=== PATIENT | male | born 1955 | race Caucasian/White ===

== ENCOUNTER 2021-02-06 12:35 | Emergency (ER) | payer OTHER, SELFPAY ==
[2021-02-06] VITALS (11 sets, daily range): BP systolic 134–174; BP diastolic 94–104; PULSE 82–93; RESP 10–23; TEMP 36.7; O2SAT 97–99
--- NOTE | 2021-02-06 12:49 | DI.CT.S_ITS ---
PROCEDURE: CT ANGIO HEAD AND NECK INDICATIONS: left facial droop TECHNIQUE: Noncontrast images were performed earlier in the day and not repeated. After the administration of intravenous contrast, 1 mm thick sections acquired from the aortic arch through the [place] of [place]. Post-contrast 4.5 mm thick sections then re-acquired from the foramen magnum to the vertex. 3-dimensional bmauhhs-nackboxvs-ckkfkmiufe (MIP) and/or volume rendering reformats were acquired of the central intracranial vasculature and neck separately. COMPARISON: [facility], CT, CT STROKE, 02/06/2021, 12:49. FINDINGS: Image quality: Excellent. BRAIN: CSF spaces: Ventricles are normal in size and shape. Basal cisterns are patent. No extra-axial fluid collections. Brain: No midline shift. No intracranial bleeds or masses. Mar-white matter interface appears intact. Skull and face: Calvarium and facial bones appear intact, without suspicious lesions. Orbits appear normal. Sinuses: Sinuses and mastoids are clear. HEAD CT ANGIOGRAPHY: Anterior circulation: Intracranial internal carotid arteries are normal in size and flow. The flow within the paired anterior cerebral arteries is normal and symmetric. The flow within the middle cerebral arteries is normal and symmetric. The anterior communicating artery is seen. No aneurysms are seen. Posterior circulation: Visualized portions of the vertebral arteries demonstrate normal caliber, and join to form a normal appearing basilar artery. Flow within the posterior cerebral arteries is normal and symmetric. No aneurysms are seen. NECK CT ANGIOGRAPHY: Carotid system: The great vessels demonstrate a conventional anatomy as they arise from the aortic arch. The origins of the common carotid arteries appear patent. The common carotid arteries demonstrate normal caliber and courses. The bifurcation regions are both widely patent. The internal carotid arteries demonstrate normal calibers and courses. Posterior circulation: The origins of the vertebral arteries both appear widely patent. The more superior extracranial portions of both vertebral arteries also demonstrate normal courses and calibers. They join to form a normal appearing basilar artery. Soft tissues: Visualized neck soft tissues demonstrate no suspicious abnormalities. Bones: No suspicious bony lesions. Visualized cervical spine appears normally aligned. Degenerative changes are seen, which are worst at the C5-C6 level. IMPRESSION: No acute intracranial process is seen. No abnormal enhancement is seen. Within the arteries of the neck, no hemodynamically significant stenosis can be seen. If there is strong clinical suspicion for an acute stroke, please consider a brain MRI for further evaluation, as it is more sensitive (assuming that there is no contraindication to MRI). Incidental note is made of: Focal C5-C6 degenerative change Any quantitative measurements of stenosis were performed using NASCET criteria. Dictated by: Jose Antonio Rodriguez M.D. on 02/06/2021 at 12:27 Approved by: Jose Antonio Rodriguez M.D. on 02/06/2021 at 12:30
--- NOTE | 2021-02-06 12:53 | DI.CT.S_ITS ---
PROCEDURE: CT STROKE INDICATIONS: LEFT FACIAL DROP TECHNIQUE: Noncontrast 4.5 mm thick angled axial sections acquired from the foramen magnum to the vertex, with coronal reformats. For radiation dose reduction, the following was used: automated exposure control, adjustment of mA and/or kV according to patient size. COMPARISON: None. FINDINGS: Image quality: Excellent. CSF spaces: Basal cisterns are patent. No extra-axial fluid collections. The ventricles are symmetric in size and shape. Brain: No intracranial bleeds or masses. There is cerebral volume loss for age, with resultant ventricular and sulcal prominence. There are periventricular and deep white matter chronic small vessel ischemic changes. There is intracranial internal carotid artery atherosclerosis. Skull and face: Calvarium and visualized facial bones appear intact, without suspicious lesions. Sinuses: Visualized sinuses and mastoids are clear. IMPRESSION: 1. CT head without acute intracranial abnormalities or acute calvarial fractures. 2. Age-related senescent changes and sequela of chronic small vessel ischemic disease. Findings were discussed telephonic with Dr. Oliva at 1316 hrs. This study fulfills neurological imaging criteria for inclusion or exclusion of acute stroke therapies based on available published neurological guidelines. Dictated by: Arpit Pope M.D. on 02/06/2021 at 13:14 Approved by: Arpit Pope M.D. on 02/06/2021 at 13:17
[2021-02-06 13:01] LABS: Add Manual Diff / Slide Review NO; Basophils Absolute Auto 100 /uL (0-100); Basophils Percent Auto 0.8 % (0-2); Eosinophils Absolute Auto 200 /uL (0-450); Eosinophils Percent Auto 1.8 % (2-4); Hematocrit 42.5 % (41-53); Lymphocytes Absolute Auto 1600 /uL (1100-4500); Lymphocytes Percent Auto 15.5 % (25-40); Mean Corpuscular HGB Conc 32.9 % (30-36); Mean Corpuscular Hemoglobin 29.6 PG (26-34); Mean Corpuscular Volume 90.1 fL (80-100); Monocytes Absolute Auto 1100 /uL (0-900); Monocytes Percent Auto 10.7 % (3-14); Neutrophils Absolute Auto 7200 /uL (1500-7000); Neutrophils Percent Auto 71.2 % (50-75); Platelet Count 304 X10^3/uL (150-400); Red Blood Cell Count 4.71 X10^6/uL (4.5-5.9); White Blood Cell Count 10.1 X10^3/uL (4.5-11.0)
[2021-02-06 13:10] LABS: INR 1.3 (0.9-1.3); Prothrombin Time 14.6 SECONDS (10.1-12.7)
[2021-02-06 13:12] LABS: PTT Partial Thromboplastin Tim 31 SECONDS (26.4-36.2)
--- NOTE | 2021-02-06 13:13 | ED_ITS ---
HPI - Neuro Symptoms/Deficit General Chief Complaint: Neuro Symptoms/Deficit Stated Complaint: left side face droop since 9am Time Seen by Provider: 02/06/21 12:49 Source: patient Mode of arrival: Ambulatory Limitations: no limitations History of Present Illness HPI Narrative: Patient is a 65-year-old male who presents with a left facial droop he says it started at 9:00 a.m.. He went to brushes teeth any noticed that his face felt funny and that there was left facial droop. He has no numbness tingling or weakness no visual changes. He was called as code stroke. He has no chest pain or palpitations. He does not have any risk factors On Anticoagulants: No Related Data Home Medications Medication Instructions Recorded Confirmed Sary's wort PO 10/10/20 10/10/20 ascorbic acid (vitamin C) PO 10/10/20 10/10/20 cholecalciferol (vitamin D3) 125 125 mcg PO DAILY 10/10/20 10/10/20 mcg (5,000 unit) capsule melatonin PO 10/10/20 10/10/20 vitamin B complex PO 10/10/20 10/10/20 vitamin E acetate PO 10/10/20 10/10/20 Previous Rx's Medication Instructions Recorded fluoxetine 10 mg capsule 10 mg PO DAILY #90 cap 01/09/21 acyclovir 800 mg tablet 800 mg PO 5XD #35 tab 02/06/21 prednisone 20 mg tablet 40 mg PO DAILY #10 tab 02/06/21 Allergies Allergy/AdvReac Type Severity Reaction Status Date / Time No Known Drug Allergies Allergy Verified 02/06/21 12:41 Review of Systems Review of Systems Narrative: GENERAL: Denies chills, fatigue, malaise, fever, sweats, travel HEENT: Denies sinus pain, ear pain, sore throat, difficulty swallowing, neck pain RESPIRATORY: Denies dyspnea, cough, wheezing, hemoptysis, sputum. CARDIOVASCULAR: Denies chest pain, palpitations, orthopnea, edema GASTROINTESTINAL: Denies nausea, vomiting, abdominal pain, diarrhea, constipation, melena. : Denies dysuria, frequency, incontinence, hematuria, urinary retention, flank pain. MUSCULOSKELETAL: Denies weakness, joint pain, or bony pain SKIN: No rash, no erythema, no pruritus NEUROLOGIC: See HPI PSYCHIATRIC: No concerning psychosocial issues. 12 point review of systems is negative except for those stated above and HPI Hematologic/Lymphatic On Anticoagulants: No Patient History Medical History (Updated 02/06/21 @ 16:48 by June Oliva DO) Borderline hypertension Calcific tendinitis, right forearm Depression Hyperlipidemia Surgical History (Updated 10/18/20 @ 13:57 by Bonnie Silva) History of dental surgery Family History (Updated 10/18/20 @ 13:59 by Bonnie Silva) Father Cancer Brother Prostate cancer Brother Cancer Hypertension Social History Smoking Status: Former smoker Tobacco: How many years used: 10 quit status: has quit before second hand exposure: No alcohol intake: current (1-2 glasses mixed drink per week ) substance use type: does not use Smoking Status: Former smoker alcohol intake frequency: 0-2 drinks per day Substance Use Type: does not use Exam Initial Vital Signs Initial Vital Signs: Vital Signs Temperature 98.1 F 02/06/21 12:37 Pulse Rate 85 02/06/21 12:37 Respiratory Rate 16 02/06/21 12:37 Blood Pressure 165/94 H 02/06/21 12:37 Pulse Oximetry 99 02/06/21 12:37 GENERAL: Well-appearing, well-nourished and in no acute distress. HEENT: Head atraumatic,EOMI, pupils reactive, left facial droop, moist mucous membranes CARDIOVASCULAR: Regular rate and rhythm without murmurs, rubs or gallops. RESPIRATORY: Breath sounds equal bilaterally, no wheezes rales or rhonchi. ABDOMEN: Soft, nontender. Normoactive bowel sounds all 4 quadrants. No guarding or rebound. EXTREMITIES: Normal range of motion, no clubbing or edema. Neurovascularly intact NEUROLOGICAL: Alert and oriented x4.Normal gait and speech. Cranial nerves II through XII grossly intact. Good ermlpj-gb-oywh, good prwp-ov-dyql, strength equal bilaterally, no dysarthria or aphasia, sensation in tact to soft touch bilaterally, no visual changes, left facial droop. Able to close eyes equally able to wrinkle left forehead SKIN: Warm, dry, no laceration, no petechiae, no rashes or lesions. Scores NIH Stroke Scale Level of Conciousness: Alert, keenly responsive Ask month/age: Answers both questions correctly. Open/close eyes, close hand: Performs both tasks correctly Best gaze horizontal: Normal Visual oliver: No visual loss Facial palsy: Minor paralysis, flattened nasolabial fold, asymmetry on smiling Left arm drift: No drift for full 10 sec Right arm drift: No drift for full 10 sec Left leg drift: No drift for full 5 sec Right leg drift: No drift for full 5 sec Limb ataxia: Absent Sensory on face/arms/legs: Normal, no sensory loss Best language: No aphasia, normal Dysarthria: Normal Extinction or inattention: No abnormality Total NIH Stroke scale score: 1 Course Orders Ordered: ED Orders 02/06/21 12:49 CT angio head and neck Stat 02/06/21 12:51 Complete Blood Count AUTO DIFF Stat Comprehensive Metabolic Panel Stat Partial Thromboplastin Time Stat Prothrombin Time INR Stat Troponin & CK Cardiac Panel Stat 02/06/21 12:53 CT Stroke Stat 02/06/21 13:03 EKG-12 Lead Stat 02/06/21 13:38 MR head/brain wo/w con Stat Vital Signs Vital signs: Vital Signs - 8 hr 02/06/21 13:27 02/06/21 13:30 02/06/21 14:53 Pulse Rate 90 88 Respiratory Rate 22 17 Blood Pressure Pulse Oximetry 97 98 97 02/06/21 14:54 02/06/21 15:00 02/06/21 15:22 Pulse Rate 82 84 89 Respiratory Rate 16 15 23 Blood Pressure 159/103 H 134/100 H 162/104 H Pulse Oximetry 97 99 98 02/06/21 15:30 02/06/21 16:00 02/06/21 16:30 Pulse Rate 89 93 H 92 H Respiratory Rate 10 L 13 17 Blood Pressure 155/103 H 156/102 H Pulse Oximetry 99 99 98 02/06/21 16:31 Pulse Rate 93 H Respiratory Rate 11 L Blood Pressure 174/94 H Pulse Oximetry 99 MDM - Neuro Symptoms/Deficit Lab Data Result diagrams: 02/06/21 12:51 02/06/21 12:51 Labs: Lab Results 02/06/21 02/06/21 02/06/21 Range/Units 12:51 12:51 12:51 WBC 10.1 (4.5-11.0) X10^3/uL RBC 4.71 (4.5-5.9) X10^6/uL Hgb 14.0 (13.5-17.5) g/dL Hct 42.5 (41-53) % MCV 90.1 (80-100) fL MCH 29.6 (26-34) PG MCHC 32.9 (30-36) % RDW 14.0 (11.6-14.8) % Plt Count 304 (150-400) X10^3/uL Neut % (Auto) 71.2 (50-75) % Lymph % (Auto) 15.5 L (25-40) % [place] % (Auto) 10.7 (3-14) % Eos % (Auto) 1.8 L (2-4) % Baso % (Auto) 0.8 (0-2) % Neut # (Auto) 7200 H (7354-2514) /uL Lymph # (Auto) 1600 (8806-8203) /uL [place] # (Auto) 1100 H (0-900) /uL Eos # (Auto) 200 (0-450) /uL Baso # (Auto) 100 (0-100) /uL PT 14.6 H (10.1-12.7) SECONDS INR 1.3 (0.9-1.3) APTT 31 (26.4-36.2) SECONDS Sodium 137 (137-145) mmol/L Potassium 4.3 (3.4-5.1) mmol/L Chloride 104 (98-107) mmol/L Carbon Dioxide 24 (22-32) mmol/L BUN 16 (9-20) mg/dL Creatinine 0.88 (0.66-1.25) mg/dL Estimated GFR > 60.0 (>60) mL/min BUN/Creatinine Ratio 18.2 (6-22) Glucose 104 (80-110) mg/dL Calcium 9.1 (8.4-10.2) mg/dL Total Bilirubin 0.6 (0.2-1.3) mg/dL AST 44 (17-59) IU/L ALT 41 (<50) IU/L Alkaline Phosphatase 97 (38-126) U/L Total Creatine Kinase 103 (55-170) U/L CK-MB (CK-2) 0.90 (<2.37) ng/mL CK-MB (CK-2) Rel Index 0.9 L (1.5-5.0) % Troponin I < 0.012 (0.01-0.034) ng/mL Total Protein 7.9 (6.3-8.2) g/dL Albumin 4.4 (3.5-5.0) g/dL Globulin 3.5 (1.7-4.1) g/dL Albumin/Globulin Ratio 1.3 (1.0-2.8) Point of Care Testing Glucose POC 103 Urine Dip Bedside Urine Glucose Negative Bedside Urine Bilirubin - Negative Bedside Urine Ketone - Negative Urine Specific [place] 1.015 Bedside Urine Occult Blood - Negative Bedside Urine pH 6.0 Bedside Urine Protein - Negative Bedside Urine Urobilinogen - Negative Bedside Urine Nitrite - Negative Bedside Urine Leukocytes - Negative Esterase Imaging Data CT scan - head: Radiologist's Impression: PROCEDURE:? CT STROKE ? INDICATIONS:? LEFT FACIAL DROP ? TECHNIQUE:? Noncontrast 4.5 mm thick angled axial sections acquired from the foramen magnum to the vertex, with coronal reformats.? For radiation dose reduction, the following was used:? automated exposure control, adjustment of mA and/or kV according to patient size.? ? COMPARISON:? None. ? FINDINGS:? Image quality:? Excellent.? ? CSF spaces:? Basal cisterns are patent.? No extra-axial fluid collections.? The ventricles are symmetric in size and shape.? ? Brain:? No intracranial bleeds or masses.? There is cerebral volume loss for age, with resultant ventricular and sulcal prominence.? There are periventricular and deep white matter chronic small vessel ischemic changes.? There is intracranial internal carotid artery atherosclerosis.? ? Skull and face:? Calvarium and visualized facial bones appear intact, without suspicious lesions.? ? Sinuses:? Visualized sinuses and mastoids are clear.? ? IMPRESSION:? 1. CT head without acute intracranial abnormalities or acute calvarial fractures. ? 2. Age-related senescent changes and sequela of chronic small vessel ischemic disease. ? Findings were discussed telephonic with Dr. Oliva at 1316 hrs. ? This study fulfills neurological imaging criteria for inclusion or exclusion of acute stroke therapies based on available published neurological guidelines.? ? ? Dictated by: Arpit Pope M.D. on 02/06/2021 at 13:14 ? ? CTA - brain/neck: Radiologist's Impression: PROCEDURE:? CT ANGIO HEAD AND NECK ? INDICATIONS:? left facial droop ? TECHNIQUE:? Noncontrast images were performed earlier in the day and not repeated.? ? After the administration of intravenous contrast, 1 mm thick sections acquired from the aortic arch through the [place] of [place].? Post-contrast 4.5 mm thick sections then re- acquired from the foramen magnum to the vertex.? 3-dimensional jjjbecc-enmvetejm-vchkqufoer (MIP) and/or volume rendering reformats were acquired of the central intracranial vasculature and neck separately. ? COMPARISON:? [facility], CT, CT STROKE, 02/06/2021, 12:49. ? FINDINGS:? Image quality:? Excellent.? ? BRAIN:? CSF spaces:? Ventricles are normal in size and shape.? Basal cisterns are patent.? No extra-axial fluid collections.? ? Brain:? No midline shift.? No intracranial bleeds or masses.? Mar-white matter interface appears intact.? ? Skull and face:? Calvarium and facial bones appear intact, without suspicious lesions.? Orbits appear normal.? ? Sinuses:? Sinuses and mastoids are clear.? ? HEAD CT ANGIOGRAPHY:? Anterior circulation:? Intracranial internal carotid arteries are normal in size and flow.? The flow within the paired anterior cerebral arteries is normal and symmetric.? The flow within the middle cerebral arteries is normal and symmetric.? The anterior communicating artery is seen.? No aneurysms are seen.? ? Posterior circulation:? Visualized portions of the vertebral arteries demonstrate normal caliber, and join to form a normal appearing basilar artery.? Flow within the posterior cerebral arteries is normal and symmetric.? No aneurysms are seen.? ? NECK CT ANGIOGRAPHY:? Carotid system:? The great vessels demonstrate a conventional anatomy as they arise from the aortic arch.? The origins of the common carotid arteries appear patent.? The common carotid arteries demonstrate normal caliber and courses.? The bifurcation region s are both widely patent.? The internal carotid arteries demonstrate normal calibers and courses.? ? Posterior circulation:? The origins of the vertebral arteries both appear widely patent.? The more superior extracranial portions of both vertebral arteries also demonstrate normal courses and calibers.? They join to form a normal appearing basilar artery.? ? Soft tissues:? Visualized neck soft tissues demonstrate no suspicious abnormalities.? ? Bones:? No suspicious bony lesions.? Visualized cervical spine appears normally aligned.? Degenerative changes are seen, which are worst at the C5-C6 level. ? ? IMPRESSION:? ? No acute intracranial process is seen.? ? No abnormal enhancement is seen. ? Within the arteries of the neck, no hemodynamically significant stenosis can be seen. ? ? If there is strong clinical suspicion for an acute stroke, please consider a brain MRI for further evaluation, as it is more sensitive (assuming that there is no contraindication to MRI). ? Incidental note is made of: Focal C5-C6 degenerative change ? Any quantitative measurements of stenosis were performed using NASCET criteria.? ? ? Dictated by: Jose Antonio Rodriguez M.D. on 02/06/2021 at 12:27 ? ? Approved by: Jose Antonio Rodriguez M.D. on 02/06/2021 at 12:30 ? MR brain: Radiologist's Impression: PROCEDURE:? MR HEAD/BRAIN WO/W CON ? INDICATIONS:? left facial droop bells vs cva ? TECHNIQUE:? Noncontrast axial T1 spin echo, axial T2 fast spin echo, sagittal and axial FLAIR, coronal T2 fast spin echo, axial gradient echo, axial diffusion and ADC through the brain.? After the administration of contrast, axial and coronal T1 spin echo with fat saturation through the brain.? ? COMPARISON:? None. ? FINDINGS:? Image quality:? Excellent.? ? CSF spaces:? Basal cisterns are patent.? No extra-axial fluid collections.? Ventricles are normal in size and shape.? ? Brain:? No midline shift.? No intracranial bleeds or masses.? No abnormal intracranial enhancement.? There is cerebral volume loss for age.? There is periventricular white matter chronic small vessel ischemic change.? The brainstem appears normal.? Diffusion-weighted images demonstrate no acute ischemic insults.? No chronic ischemic insults.? Normal intravascular flow voids are present.? ? Skull and face:? Calvarial marrow is normal in signal.? Orbits appear normal.? ? Sinuses:? Sinuses and mastoids appear clear.? ? IMPRESSION:? MRI brain without acute cerebral ischemia/infarction.? No abnormal areas of enhancement.? ? ? Dictated by: Arpit Pope M.D. on 02/06/2021 at 15:04 ? ? ECG Data Interpretation: Sinus rhythm rate 98 TX interval 138 QRS [address] changes MDM Narrative Medical decision making narrative: Patient is called as a code stroke. However patient has a low NIH score and minimal disability not a tPA candidate Stroke Neurology Dr. De La Cruz got quickly involved. Agrees with move disability no an eye no tPA. Concern for Logan's palsy versus cva. She recommends MRI with and without contrast possible to see facial nerve. She does suspect for Logan's palsy versus is cva. She states if MRI is negative recommends discharging home with Logan's palsy treatment. Antolin discussion with both patient and his . At this time patient really does not have upper facial nerve involvement possibly still CVA. He has no extremity involvement. I discussed with them that there is a very small window of tPA he certainly is not a candidate now low. We discussed admission for observation and TIA and further workup including echocardiogram versus going home with Logan's palsy treatment and very close monitoring. At this time both patient and his are electing to go home with strict return precautions. would like to wake him up every 2 hours to see if he has any new involvement. 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 His it is possible that you also may have had a mini stroke. If symptoms worsen you need to return to emergency department as soon as possible so that you are candidate for thrombolytics (clot busting medication). At this time MRI does not show evidence of stroke *Continue to take medications as directed Prednisone 40 mg once a day for 5 days Acyclovir 800 mg 5 times a day for 7 days *Follow up with your primary care provider in 2-3 days *Return to ER if you should have increasing weakness, numbness, tingling, difficulty speaking, visual changes any new, worsening or concerning symptoms Prescriptions: New prednisone 20 mg tablet 40 mg PO DAILY Qty: 10 RF: 0 acyclovir 800 mg tablet 800 mg PO 5XD Qty: 35 RF: 0 No Action fluoxetine 10 mg capsule 10 mg PO DAILY Qty: 90 RF: 0 cholecalciferol (vitamin D3) 125 mcg (5,000 unit) capsule 125 mcg PO DAILY RF: 0 ascorbic acid (vitamin C) PO RF: 0 vitamin B complex PO RF: 0 vitamin E acetate PO RF: 0 melatonin PO RF: 0 Sary's wort PO RF: 0 Referrals: Jean-Pierre Marr, [Primary Care Provider] -
[2021-02-06 13:14] LABS: Alanine Aminotransferase 41 IU/L (<50); Albumin 4.4 g/dL (3.5-5.0); Albumin Globulin Ratio 1.3 (1.0-2.8); Alkaline Phosphatase 97 U/L (38-126); Aspartate Aminotransferase 44 IU/L (17-59); BUN Creatinine Ratio 18.2 (6-22); Bilirubin Total 0.6 mg/dL (0.2-1.3); Blood Urea Nitrogen 16 mg/dL (9-20); Calcium 9.1 mg/dL (8.4-10.2); Carbon Dioxide 24 mmol/L (22-32); Chloride 104 mmol/L (98-107); Creatine Kinase 103 U/L (55-170); Estimated Glomerular Filt Rate > 60.0 mL/min (>60); Globulin 3.5 g/dL (1.7-4.1); Glucose 104 mg/dL (80-110); Potassium 4.3 mmol/L (3.4-5.1); Sodium 137 mmol/L (137-145); Total Protein 7.9 g/dL (6.3-8.2)
[2021-02-06 13:25] LABS: Troponin I < 0.012 ng/mL (0.01-0.034)
[2021-02-06 13:29] LABS: CKMB % Relative Index 0.9 % (1.5-5.0); HEMOLYSIS 20 (0-50)
--- NOTE | 2021-02-06 13:38 | DI.MRI.S_ITS ---
PROCEDURE: MR HEAD/BRAIN WO/W CON INDICATIONS: left facial droop bells vs cva TECHNIQUE: Noncontrast axial T1 spin echo, axial T2 fast spin echo, sagittal and axial FLAIR, coronal T2 fast spin echo, axial gradient echo, axial diffusion and ADC through the brain. After the administration of contrast, axial and coronal T1 spin echo with fat saturation through the brain. COMPARISON: None. FINDINGS: Image quality: Excellent. CSF spaces: Basal cisterns are patent. No extra-axial fluid collections. Ventricles are normal in size and shape. Brain: No midline shift. No intracranial bleeds or masses. No abnormal intracranial enhancement. There is cerebral volume loss for age. There is periventricular white matter chronic small vessel ischemic change. The brainstem appears normal. Diffusion-weighted images demonstrate no acute ischemic insults. No chronic ischemic insults. Normal intravascular flow voids are present. Skull and face: Calvarial marrow is normal in signal. Orbits appear normal. Sinuses: Sinuses and mastoids appear clear. IMPRESSION: MRI brain without acute cerebral ischemia/infarction. No abnormal areas of enhancement. Dictated by: Arpit Pope M.D. on 02/06/2021 at 15:04 Approved by: Arpit Pope M.D. on 02/06/2021 at 15:08
== END 2021-02-06 17:20 | disposition home or self-care (01) ==
PROVIDERS: Emergency Provider Emergency Medicine; PCP Family Medicine
DX: G51.0 Bell's palsy (principal); R07.9 Chest pain, unspecified
CPT/HCPCS: 36415; 70450; 70496; 70498; 70553; 80053; 81003; 82550; 82553; 82962; 84484; 85025; 85610; 85730; 93005; 99285